=== PATIENT | male | born 1940 | race Caucasian/White ===

== ENCOUNTER 2021-12-28 05:36 | Inpatient (IN) | payer MEDICARE ==
[2021-12-23 10:28] LABS: BASOPHILS % (AUTO) 0.5 % (0-1); EOSINOPHILS # (AUTO) 0.2 X10'3 (0-0.9); LYMPHOCYTES # (AUTO) 1.2 X10'3 (1.1-4.8); LYMPHOCYTES % (AUTO) 20.9 % (21-51); MEAN CORPUSCULAR HEMOGLOBIN 34.5 PG (27.0-31.0); MEAN CORPUSCULAR HGB CONC 34.4 g/dL (33.0-36.5); MEAN CORPUSCULAR VOLUME 100.3 FL (78-98); MEAN PLATELET VOLUME 8.2 FL (7.4-10.4); MONOCYTES # (AUTO) 0.5 X10'3 (0-0.9); NEUTROPHILS # (AUTO) 3.7 X10'3 (1.8-7.7); NEUTROPHILS % (AUTO) 66.6 % (42-75); PRE OP HEMATOCRIT 44.6 % (42.0-52.0); PRE OP HEMOGLOBIN 15.4 g/dL (14.0-17.9); PRE OP PLATELET COUNT 155 X10'3 (140-440); RED BLOOD COUNT 4.45 X10'6 (4.70-6.10); RED CELL DISTRIBUTION WIDTH 14.1 % (11.5-14.5)
[2021-12-23 10:49] LABS: ALBUMIN 3.2 G/DL (3.4-5.0); ALBUMIN/GLOBULIN RATIO 1.1 (1.1-1.5); ALKALINE PHOSPHATASE 103 IU/L (46-116); BLOOD UREA NITROGEN 16 MG/DL (7-18); BUN/CREATININE RATIO 14.5 (5.4-32.0); CALCIUM 8.7 MG/DL (8.5-10.1); CHLORIDE 106 MMOL/L (99-107); PRE OP ALT 37 U/L (30-65); PRE OP ANION GAP 8 (8-16); PRE OP AST 24 U/L (10-37); PRE OP BILIRUB, TOTAL 1.1 MG/DL (0.0-1.0); PRE OP GLUCOSE 91 MG/DL (70-104); PRE OP SODIUM 140 MMOL/L (135-145); TOTAL CARBON DIOXIDE 25.9 MMOL/L (24-32); TOTAL PROTEIN 6.1 G/DL (6.4-8.2); eGFR 64 ML/MIN
[2021-12-28] VITALS (25 sets, daily range): BP systolic 106–148; BP diastolic 57–85
[~2021-12-28] VITALS: Ht 182.9 cm; Wt 90.7 kg
[~2021-12-28 05:36] MED LIST: ATOR-2 PO; CARV-50 PO; DOCUMENT DATE & TIME OF BETA-BLOCKER PO ONE; SACU1TAB PO; ceFAZolin inj. 2,000 MG in dextrose 5%-water 100 ML IV ONE; famotidine 20mg tablet PO ONE; ringers solution, lacted 1,000 ML IV SCH
[2021-12-28] MEDS ORDERED: LIDOcaine 1% 30ml preserv. free vial ONE (06:40)
[2021-12-28] MEDS ORDERED: BUPIVAcaine/PF 2.5 mg/ml (0.25%) 30ml vial ONE (06:40)
[2021-12-28] MEDS ORDERED: fentaNYL/PF 50MCG/1 ML 2ML syringe ONE ×2 (07:20→10:09)
[2021-12-28] MEDS ORDERED: rocuronium 10mg/ml inj IV ONE ×2 (07:22→07:39)
[2021-12-28] MEDS ORDERED: propofol inj 20 ML IV ONE (07:22)
[2021-12-28] MEDS ORDERED: LIDOcaine 2% (20mg/ml) 5ml vial ONE (07:22)
[2021-12-28] MEDS ORDERED: sevoflurane 250ml liquid IH ONE (07:39)
[2021-12-28] MEDS ORDERED: PHENYLephrine 10mg/ml 5ml injection IV ONE (07:39)
[2021-12-28] MEDS ORDERED: ePHEDrine 50MG/ML INJ. ONE (07:39)
[2021-12-28] MEDS ORDERED: glycopyrrolate 0.2mg/ml inj ONE ×2 (08:24→10:36)
[2021-12-28] MEDS ORDERED: dexamethasone sod phosphate 4mg/ml inj. ONE (08:24)
[2021-12-28] MEDS ORDERED: ringers solution, lacted 1,000 ML IV SCH (09:10)
[2021-12-28] MEDS ORDERED: HYDROmorphone/PF 0.2 MG/ML SYRINGE IV PRN ×2 (09:10)
[2021-12-28] MEDS ORDERED: ondansetron/PF 4mg/2ml inj IV PRN ×2 (09:10→10:35)
[2021-12-28] MEDS ORDERED: sugammadex 200mg/2ml injection IV ONE (10:14)
--- NOTE | 2021-12-28 10:16 | NUR ---
RECEIVED PT FROM OPERATING ROOM ON BED, REPORT FROM ANESTHESIA DR ESQUIVEL AND OPERATING ROOM NURSE. PT IS EASILY AROUSABLE, VITAL SIGNS STABLE, 4 SMALL ABDOMINAL INCISION CLOSED WITH DERMABOND, NO SIGNS OF BLEEDING NOTED. PT DENIES PAIN. IV SITE LEFT HAND 20 G PATENT WITH NO SIGNS OF INFILTRATION. Addendum: 12/28/21 at 1042 by Taylor Tolbert RN Amended: Links added.
[2021-12-28] MEDS: HYDROmorph/NS 0.2 mg/ml PCA 100 ML IV SCH ×8 (10:35→23:00)
[2021-12-28] MEDS ORDERED: naloxone 0.4 mg/ml inj IV PRN (10:35)
[2021-12-28] MEDS ORDERED: normal saline 1000ml 1,000 ML IV SCH (10:35)
[2021-12-28] MEDS ORDERED: metoclopramide 5 mg/ml inj IV PRN (10:35)
[2021-12-28] MEDS ORDERED: neostigmine methylsulfate 1 MG/ML 10ml vial ONE (10:36)
[2021-12-28] MEDS ORDERED: ondansetron/PF 4mg/2ml inj ONE (10:37)
[2021-12-28] MEDS ORDERED: albumin (Human) 5% 250ml 250 ML IV ONE (10:37)
[2021-12-28] MEDS ORDERED: acetaminophen 1,000mg/100ml IV 100 ML IV ONE (10:37)
--- NOTE | 2021-12-28 10:48 | NUR ---
X-RAY PAGED, AT BEDSIDE PERFORMING PORTABLE CHEST X-RAY REQUESTED BY DR HERNANDEZ
[2021-12-28] MEDS: morphine 2 MG/ML inj. syringe IV PRN ×2 (11:08→13:55)
[2021-12-28] MEDS ORDERED: PCA WASTE DOCUMENTATION MC SCH (11:15)
--- NOTE | 2021-12-28 11:50 | NUR ---
REPORT CALLED TO NATY PT TRANSPORTED TO 4TH FLOOR IN STABLE CONDITION, ALL BELONGINGS WITH PT. COMPREHENSIVE OPHTHALMOLOGIST DILAUDID PUMP HOOKED UP AND PATIENT INSTRUCTED ON HOW TO USE THE DEMAND BUTTON AND PERFORMED RETURN DEMONSTRATION. VOLUNTEER NOTIFIED FAMILY OF PATIENT'S TRANSFER TO THE FLOOR. Addendum: 12/28/21 at 1221 by Taylor Tolbert RN Amended: Links added.
--- NOTE | 2021-12-28 11:50 | NUR ---
Patient in room ORTHO 4016. I have received report from Cathie WOODY and had the opportunity to ask questions and assume patient care.
--- NOTE | 2021-12-28 12:00 | NUR ---
patient orientated to room. 4 lap sites CDI with gamal. Cadd pump in place. patient instructed on use of pump. pain well controlled . Family present. commenced on post op VS appear stable will continue to monitor
[2021-12-28] MEDS: potassium CL 20mEq in D5-1/2NS 1,000 ML IV SCH ×3 (16:18→23:42)
--- NOTE | 2021-12-28 18:02 | NUR ---
orientee documentation: I have reviewed and agree with all interventions, assessments performed and documented by Gloria WOODY.
--- NOTE | 2021-12-28 18:21 | NUR ---
Problems reprioritized. Patient report given, questions answered & plan of care reviewed with Kayleigh WOODY.
[2021-12-28] MEDS: sacubitril/valsartan 24mg-26mg tablet PO SCH (20:01)
[2021-12-28] MEDS: heparin, porcine 5000 units/ml vial SQ SCH (20:01)
[2021-12-28] MEDS: carVEDilol 12.5mg tablet PO SCH (20:01)
[2021-12-29] MEDS: HYDROmorph/NS 0.2 mg/ml PCA 100 ML IV SCH ×4 (01:00→07:00)
[2021-12-29 02:00] VITALS: BP 122/71
[2021-12-29 06:00] VITALS: BP 128/72
[2021-12-29 06:00] LABS: BASOPHILS % (AUTO) 0.1 % (0-1); EOSINOPHILS % (AUTO) 0.2 % (0-6); HEMATOCRIT 41.5 % (42.0-52.0); HEMOGLOBIN 14.2 g/dl (14.0-17.9); LYMPHOCYTES % (AUTO) 9.9 % (21-51); MEAN CORPUSCULAR HEMOGLOBIN 34.6 PG (27.0-31.0); MEAN CORPUSCULAR HGB CONC 34.3 g/dL (33.0-36.5); MEAN CORPUSCULAR VOLUME 100.9 FL (78-98); MEAN PLATELET VOLUME 8.6 FL (7.4-10.4); MONOCYTES # (AUTO) 0.8 X10'3 (0-0.9); MONOCYTES % (AUTO) 8.5 % (2-12); NEUTROPHILS % (AUTO) 81.3 % (42-75); PLATELET COUNT 153 X10'3 (140-440); RED BLOOD COUNT 4.11 X10'6 (4.70-6.10); RED CELL DISTRIBUTION WIDTH 14.1 % (11.5-14.5); WHITE BLOOD COUNT 9.9 X10'3 (4.5-11.0)
[2021-12-29 06:08] LABS: ALBUMIN 3.1 G/DL (3.4-5.0); ANION GAP 4 (8-16); BLOOD UREA NITROGEN 16 MG/DL (7-18); BUN/CREATININE RATIO 14.2 (5.4-32.0); CALCIUM 8.1 MG/DL (8.5-10.1); CHLORIDE 106 MMOL/L (99-107); CREATININE 1.13 MG/DL (0.60-1.10); GLUCOSE 126 MG/DL (70-104); POTASSIUM 4.4 MMOL/L (3.5-5.1); SODIUM 138 MMOL/L (135-145); TOTAL CARBON DIOXIDE 28.2 MMOL/L (24-32); eGFR 62 ML/MIN
[2021-12-29] MEDS ORDERED: oxyCODONE/APAP 5-325mg tablet PO PRN (08:05)
[2021-12-29] MEDS: sacubitril/valsartan 24mg-26mg tablet PO SCH (08:19)
[2021-12-29] MEDS: carVEDilol 12.5mg tablet PO SCH (08:19)
[2021-12-29] MEDS: heparin, porcine 5000 units/ml vial SQ SCH (08:20)
[2021-12-29] MEDS: potassium CL 20mEq in D5-1/2NS 1,000 ML IV SCH (08:28)
--- NOTE | 2021-12-29 08:38 | NUR ---
[facility]rence consult: Pt s/p juan joséet fundoplication this admit, provided pt w/ written and verbal post-lawrence diet education w/ RD contact info. Addendum: 12/29/21 at [address] Amended: Links added.
[2021-12-29] MEDS ORDERED: PCA WASTE DOCUMENTATION MC SCH (09:25)
[2021-12-29 10:00] VITALS: BP 118/76
[2021-12-29] MEDS ORDERED: PER5325T PO (14:19)
== END 2021-12-29 14:55 | disposition home or self-care (01) | DRG 327 ==
LOC: PAS 05:36 → PAS IN 10:40 → ORTHO 4S 12:05
PROVIDERS: ADMIT Surgery; ATTEND Surgery
PROC: 0DV44ZZ Restriction of Esophagogastric Junction, Percutaneous Endoscopic Approach (ICD-10-PCS; 2021-12-28)
PROC: 8E0W4CZ Robotic Assisted Procedure of Trunk Region, Percutaneous Endoscopic Approach (ICD-10-PCS; 2021-12-28)
PROC: 0BUT4JZ Supplement Diaphragm with Synthetic Substitute, Percutaneous Endoscopic Approach (ICD-10-PCS; principal; 2021-12-28 07:39)
DX: K44.9 Diaphragmatic hernia without obstruction or gangrene (principal); J98.11 Atelectasis; I10 Essential (primary) hypertension; I25.10 Atherosclerotic heart disease of native coronary artery without angina pectoris; E78.5 Hyperlipidemia, unspecified; Z79.899 Other long term (current) drug therapy
CPT/HCPCS: 36415; 71045; 80048; 80053; 82948; 85025; 86885; 86900; 86901; 87811; 93005; A4615; A4618; C1758; C1781; G0378; J0131; J0690; J1100; J1170; J1644; J2270; J2370; J2405; J2704; J2710; J3010; J3480; J3490; J7030; J7060; J7120; P9045

== ENCOUNTER 2024-01-15 14:40 | Outpatient (CLI) | payer MEDICARE ==
[~2024-01-15 14:40] MED LIST changes: +CYAN100085 SL; -DOCUMENT DATE & TIME OF BETA-BLOCKER PO ONE; +ELDERBERRY PO; +KRIL1CAP19 PO; +MV-M1TAB19 PO; +SUPER BEETS PO; -ceFAZolin inj. 2,000 MG in dextrose 5%-water 100 ML IV ONE; -famotidine 20mg tablet PO ONE; -ringers solution, lacted 1,000 ML IV SCH
== END 2024-01-15 23:59 | disposition home or self-care (01) ==
LOC: MRI02 14:40
PROVIDERS: ATTEND Physician Assistant Surgical
DX: S43.402A Unspecified sprain of left shoulder joint, initial encounter (principal); M85.612 Other cyst of bone, left shoulder; M75.122 Complete rotator cuff tear or rupture of left shoulder, not specified as traumatic; M19.012 Primary osteoarthritis, left shoulder; M25.512 Pain in left shoulder; X58.XXXA Exposure to other specified factors, initial encounter; Y93.89 Activity, other specified; Y92.89 Other specified places as the place of occurrence of the external cause; Y99.8 Other external cause status
CPT/HCPCS: 73221